=== PATIENT | male | born 1980 | race Hispanic/Latino ===

== ENCOUNTER 2017-12-09 07:22 | Emergency (ER) | payer OTHER ==
[2017-12-09] MEDS ORDERED: IBUPROFEN 600 MG TABLET ONE (07:51)
== END 2017-12-09 08:12 | disposition home or self-care (01) ==
LOC: EDH 07:22
DX: H65.05 Acute serous otitis media, recurrent, left ear (principal); Z72.0 Tobacco use

== ENCOUNTER → 2018-11-17 | Outpatient (CLI) | payer OTHER ==
[2018-11-17 07:41] LABS: BASOPHILS % (AUTO) 0.5 % (0.0-5.0); HEMATOCRIT 45.2 % (42-54); LYMPHOCYTES % (AUTO) 36.1 % (21.0-51.0); MEAN CORPUSCULAR HEMOGLOBIN 29.2 pg (27.0-33.0); MEAN CORPUSCULAR HGB CONC 33.5 g/dL (32.0-36.0); MEAN CORPUSCULAR VOLUME 87.2 fL (79-99); MONOCYTES % (AUTO) 5.6 % (3.0-13.0); NEUTROPHILS % (AUTO) 52.8 % (40.0-77.0); NUCLEATED RED BLOOD CELLS 0.1 % (0.0-0.19); PLATELET COUNT (AUTO) 215 K/uL (130-400); RED BLOOD CELL COUNT(AUTO) 5.18 MIL/uL (4.50-6.20); RED CELL DISTRIBUTION WIDTH 13.2 % (11.0-15.5); WHITE BLOOD COUNT (AUTO) 4.5 K/uL (4.8-10.8)
[2018-11-17 07:57] LABS: ALBUMIN 4.1 g/dL (3.5-5.0); BILIRUBIN,TOTAL 0.6 mg/dL (0.2-1.0); POTASSIUM 3.8 mmol/L (3.5-5.1); THYROID STIMULATING HORMONE 3.05 uIU/mL (0.36-3.74); TOTAL PROTEIN, SERUM 7.8 g/dL (6.0-8.3)
== END | disposition home or self-care (01) ==
LOC: LAB 07:28
PROVIDERS: ATTEND Internal Medicine
DX: Z13.29 Encounter for screening for other suspected endocrine disorder (principal); E78.2 Mixed hyperlipidemia; R73.01 Impaired fasting glucose
CPT/HCPCS: 36415; 80053; 80061; 84443; 85025

== ENCOUNTER → 2018-12-03 | Outpatient (CLI) | payer OTHER ==
[2018-12-03 10:02] LABS: HEMOGLOBIN A1C 5.6 % (4.0-6.0)
[2018-12-03 10:10] LABS: BILIRUBIN,TOTAL 0.6 mg/dL (0.2-1.0); POTASSIUM 4.2 mmol/L (3.5-5.1); TOTAL PROTEIN, SERUM 7.2 g/dL (6.0-8.3)
[2018-12-04 07:29] LABS: HEPATITIS A ANTIBODY IGM Negative (Negative); HEPATITIS B CORE IGM Negative (Negative); HEPATITIS Bs ANTIGEN SCREEN P Negative (Negative)
== END | disposition home or self-care (01) ==
LOC: RAH 10:00
PROVIDERS: ATTEND Internal Medicine
DX: R94.5 Abnormal results of liver function studies (principal)
CPT/HCPCS: 36415; 80053; 80074; 83036

== ENCOUNTER → 2019-03-02 | Outpatient (CLI) | payer OTHER ==
[2019-03-02 09:49] LABS: BILIRUBIN,TOTAL 0.8 mg/dL (0.2-1.0); CREATININE 1.1 mg/dL (0.5-1.5); POTASSIUM 3.7 mmol/L (3.5-5.1); TOTAL PROTEIN, SERUM 7.6 g/dL (6.0-8.3)
== END | disposition home or self-care (01) ==
LOC: LAB 09:18
PROVIDERS: ATTEND Internal Medicine
DX: E78.2 Mixed hyperlipidemia (principal); Z83.3 Family history of diabetes mellitus
CPT/HCPCS: 36415; 80053; 80061

== ENCOUNTER → 2019-04-13 | Outpatient (CLI) | payer OTHER ==
[2019-04-13 08:12] LABS: ALBUMIN 3.9 g/dL (3.5-5.0); BILIRUBIN,DIRECT 0.1 mg/dL (0.0-0.3); BILIRUBIN,TOTAL 0.7 mg/dL (0.2-1.0); TOTAL PROTEIN, SERUM 7.5 g/dL (6.0-8.3)
== END | disposition home or self-care (01) ==
LOC: RAH 07:22
PROVIDERS: ATTEND Internal Medicine
DX: E78.2 Mixed hyperlipidemia (principal); K76.0 Fatty (change of) liver, not elsewhere classified; R73.01 Impaired fasting glucose
CPT/HCPCS: 36415; 80076; 82043